=== PATIENT | male | born 1940 | race Caucasian/White ===

== ENCOUNTER 2020-07-12 16:54 | Outpatient (RCR) | payer MEDICARE, SELFPAY ==
[2020-07-12 16:58] VITALS: BP_SYST 60
--- NOTE | 2020-07-12 17:39 | PTOPEVAL ---
Thank you for referring Arnoldo Marroquin to [facility] The patient is scheduled to be seen for therapy? __3__x/week for 12 visits. Please review, sign, date and return this plan of care EMILIANA. I agree with and certify that the following plan of care is medically necessary. Referring Physician Date Admitting Provider: Attending Provider: Devaughn Workman, MD Referring Provider: *PT Outpatient Evaluation Start: 07/12/20 16:58 Freq: Status: Active Protocol: Document 07/12/20 16:58 GONZALEZ (Rec: 07/12/20 17:38 GONZALEZ [id number]) Therapy Assessment Status Assessment Status Assessment Status Evaluation Outpatient Past Medical History Cardiovascular History Hx Hypercholesterolemia Yes Gastrointestinal History Hx Gastroesophageal Reflux Disease Yes Genitourinary History Hx Benign Prostatic Hyperplasia Yes Musculoskeletal History Hx Joint Replacement Yes: R knee, L hip Hx Orthopedic Surgery Yes: Luke rotator cuff Evaluation Information Problem 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 reports that he underwent Query Text:As Reported By Patient/ surgery on 07/09/20. He states Family that he never was in a sling. He states that he has been doing exercise daily that he was instructed by the doctor. He states that he is sleep at night with pain medication. He reports that his goal for therapy is to gain normal shoulder mobility. Prior Level of Function Activity Level (Last 3 Months) Occupation [employer] Hand Dominance Right Activity of Daily Living Ability Independent Indoor/Home Mobility Independent Community Mobility Independent Stairs Ability Independent Functional Cognition (Planning, Shopping Needs Some Help , Taking Medications) Cooking No Cleaning No Laundry No Shopping No Driving No Pain Assessment Timing of Pain Assessment Timing of Pain Assessment Pre-Treatment Pain Scale Pain Scale Used Numeric (1 - 10) Self Report Pain Assessment Left Shoulder(s) Reported Pain Level 5 Pain Score Pain Score 5: Self Report Interventions Used Interventions Used By Clinicians Activity or ADL's,Exercise Upper Extremity Range of Motion Scapular/ Shoulder Range of Motion Left Shoulder Flexion - Active 0
--- NOTE | 2020-08-21 14:04 | PTOPEVAL ---
Thank you for referring Arnoldo Marroquin to [facility].? The patient is scheduled to be seen for therapy? __2__x/week for 8 visits. Please review, sign, date and return this plan of care EMILIANA. I agree with and certify that the following plan of care is medically necessary. Referring Physician Date Admitting Provider: Attending Provider: Devaughn Workman, MD Referring Provider: *PT Outpatient Evaluation Start: 07/12/20 16:58 Freq: Status: Active Protocol: Document 08/21/20 13:00 GONZALEZ (Rec: 08/21/20 14:01 GONZALEZ [id number]) Therapy Assessment Status Assessment Status Assessment Status Re-evaluation Outpatient Past Medical History Cardiovascular History Hx Hypercholesterolemia Yes Gastrointestinal History Hx Gastroesophageal Reflux Disease Yes Genitourinary History Hx Benign Prostatic Hyperplasia Yes Musculoskeletal History Hx Joint Replacement Yes: R knee, L hip Hx Orthopedic Surgery Yes: Luke rotator cuff Hx Rheumatoid Arthritis Yes Evaluation Information Problem 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 reports that the shoulder Query Text:As Reported By Patient/ is doing better in recent days Family . He still notes bouts of sharp, intense pain that limited his ability to exercise. He states that he just recently has been able to tolerate performance of the pulleys with less pain at home . Pain Assessment Pain Scale Pain Scale Used Numeric (1 - 10) Self Report Pain Assessment Left Shoulder(s) Reported Pain Level 5 Pain Score Pain Score 5: Self Report Interventions Used Interventions Used By Clinicians Electrical Stimulation, Exercise Upper Extremity Range of Motion General Upper Extremity Range of Motion Gross Upper Extremity Range of Motion Pt. presents with 120 degrees Comments active left shoulder flexion in supine. In sitting pt. demonstrate 75 degrees shoulder flexion with excessive scapular elevation and upward rotation. He remains very painful with attempted ER of the left shoulder even at 0 degrees of abduction. He achieves 35 degrees passive ER and 40
== END 2020-08-21 14:15 | disposition home or self-care (01) ==
LOC: CHSPT 16:54
PROVIDERS: Visit Provider Orthopaedic Surgery
DX: M75.122 Complete rotator cuff tear or rupture of left shoulder, not specified as traumatic (principal); Z51.89 Encounter for other specified aftercare
CPT/HCPCS: 97014; 97110; 97161; 97530; G0283

== ENCOUNTER 2020-07-20 13:00 | Outpatient (CLI) | payer MEDICARE, SELFPAY ==
[2020-07-21 18:58] LABS: SARS-CoV-2 RNA PCR Positive
== END 2020-07-20 13:01 | disposition home or self-care (01) ==
LOC: CHSLAB 13:03
PROVIDERS: PCP Family Medicine; Visit Provider Family Medicine
DX: U07.1 COVID-19 (principal)
CPT/HCPCS: 87635; C9803; U0003

== ENCOUNTER 2020-07-20 13:47 | Inpatient (IN) | payer MEDICARE, SELFPAY ==
[2020-07-20] VITALS (27 sets, daily range): BP systolic 110–140; BP diastolic 62–89; PULSE 72–87; RESP 12–27; TEMP 37.2–37.4; O2SAT 90–95
--- NOTE | ~2020-07-20 | CT_ITS ---
EXAMINATION: CT brain wo con DATE: 07/20/2020 15:25 INDICATION: Generalized weakness. Fever. Covid 19. TECHNIQUE: Computed tomography (CT) of the head was performed without intravenous contrast. The dose- length product was 605.33 mGy-cm. Automated exposure control and iterative reconstruction technique w ere employed. COMPARISON: None FINDINGS: Hypodensity of the left basal ganglia may represent prominent perivascular space or chronic lacunar infarction. There is intracranial atherosclerosis. No ventriculomegaly or midline shift. The re is a mucosal retention cyst of the right maxillary sinus. No acute intracranial hemorrhage, infarc tion, mass or mass effect. There are scattered mild periventricular and subcortical white matter [place] ges, most likely related to small vessel ischemic disease (microangiopathy). IMPRESSION: 1. No acute intracranial abnormality. 2: Hypodensity of the left basal ganglia, perivascular space versus chronic lacunar infarction. Reviewed, dictated and finalized at location A. ISTRY RESEARCH ASSISTANT IMPRESSION: 1. No acute intracranial abnormality. 2: Hypodensity of the left basal ganglia, perivascular space versus chronic lac unar infarction.
--- NOTE | ~2020-07-20 | XR_ITS ---
XR chest 1V portable 07/20/2020 15:26 Indication: Weakness. Shortness of breath. Covid Positive. Procedure: AP portable chest Comparison: 07/25/2016 Findings: Cardiomegaly. Left basilar atelectasis. No focal air space disease, pulmonary edema, pleura l effusion or suspected pneumothorax. There is a left shoulder arthroplasty. Impression: 1: Left basilar atelectasis. 2: Cardiomegaly. Reviewed, dictated and finalized at location A. URETOR SPECIALIST Impression: 1: Left basilar atelectasis. 2: Cardiomegaly.
--- NOTE | 2020-07-20 13:57 | ECG_ITS ---
Measurements Intervals [place] Rate: 81 P: 33 TN: 156 QRS: -20 QRSD: 97 T: -1 QT: 390 QTc: 453 Interpretive Statements SINUS RHYTHM BORDERLINE R WAVE PROGRESSION, ANTERIOR LEADS CONSIDER INFERIOR INFARCT, AGE INDETERMINATE ABNORMAL ECG Electronically Signed On 07-20-2020 14:39:12 ASSISTANT BRANCH OPERATIONS MANAGER by Keven Peterson D.O.
--- NOTE | 2020-07-20 14:05 | ED.WEAKNESS ---
HPI - Weakness General Chief complaint: Weakness Stated complaint: 80 YO male who is S/P left shoulder replacement 1 week ago sent into ER for evaluation of gen weakness w/ poor appetite and nausea for approx 1 week since just after his surgery. Patients last COVID test was today at [facility] office and prior just prior to surgery on 07/07/20. Results from today are pending, results from 07/07 was negative. Symptoms associated w/ N/V and loss of appetite. Related Data Home Medications Medication Instructions Recorded Confirmed esomeprazole magnesium [Nexium] 40 mg PO DAILY 07/01/19 07/20/20 finasteride 5 mg PO DAILY 07/01/19 07/20/20 hydrocodone-acetaminophen 1 tablet PO PRN 07/20/20 07/20/20 Allergies Allergy/AdvReac Type Severity Reaction Status Date / Time No Known Allergies Allergy Verified 08/22/19 09:32 Review of Systems Review of Systems: All systems reviewed & are unremarkable except as noted in HPI and below Constitutional: Constitutional: Reports weakness Eyes: Eyes: Reports no additional eye complaints ENT: Reports system reviewed and no additional complaints, except as documented Cardiovascular: Cardiovascular: Reports no additional cardiovascular complaints Respiratory: Respiratory: Reports no additional respiratory complaints Gastrointestinal: Gastrointestinal: Reports no additional gastrointestinal complaints Genitourinary: Genitourinary: Reports no additional male genitourinary complaints Musculoskeletal: Musculoskeletal: Reports no additional musculoskeletal complaints Integumentary/Breasts: Skin/Breast: Reports system reviewed and no additional complaints, except as docu Neurologic: Reports weakness Psychiatric: Psychiatric: Reports no additional psychiatric complaints Endocrine: Endocrine: Reports as per HPI Comments: Loss of appetite Hematologic/Lymphatic: Hematologic/Lymphatic: Reports no additional hematologic/lymphatic complaints Allergic/Immunologic: Allergic/Immunologic: Reports no additional allergic/immunologic complaints [facility] Past Medical History Medical History BPH (benign prostatic hyperplasia) GERD (gastroesophageal reflux disease) Hypercholesteremia Overweight Rheumatoid arthritis Surgical History Surgical History H/O knee surgery H/O rotator cuff surgery History of hip surgery Family History Family History Father Healthy adult Mother Emphysema, unspecified Social History Social History Smoking status: Never smoker Substance use: never Additional living arrangements comments: . 2 Children Additional occupation/education comments: Prior Occupation: [employer] Gender identity (if verbalized by the patient): Male Exam Const: General: healthy appearing and no acute distress Orientation/consciousness: patient oriented x3 HENMT: Head: normal to inspection Eyes: Conjunctivae: conjunctivae normal Pupils: Equal, round and reactive pupils present Neck: Neck: normal visual inspection and no lymphadenopathy Chest: Chest palpation & inspection: normal inspection of the chest Resp: Effort & Inspection: normal respiratory effort Auscultation: clear to auscultation bilaterally Cardio: Rate: regular rate Rhythm: regular rhythm GI: Inspection: non-distended GI Palp: Yes Soft to palpation, No Tenderness to palpation present (GI) and No Guarding due to palpation present (GI) : General: Yes no CVA tenderness Testes: Testes normal Back/Spine/Pelvis: Back: no CVA tenderness Skin: General skin exam: normal color Neuro: General: patient oriented x3, moves all extremities, no meningeal signs, no focal motor deficits (L shoulder post op reduced movement as expected for post-op status) and CN's II-XI intact bilaterally Spe
[2020-07-20 14:25] LABS: Basophils Absolute Auto 0.04 K/mm3 (0.00-0.10); Basophils Percent Auto 0.8 % (0.0-1.0); Eosinophils Absolute Auto 0.01 K/mm3 (0.02-0.50); Eosinophils Percent Auto 0.2 % (1.0-6.0); Hematocrit 42.5 % (37.0-46.0); Hemoglobin 13.8 g/dL (12.4-15.3); Immature Granulocyte Absolute 0.03 K/mm3 (0.00-0.00); Immature Granulocyte Percent A 0.6 % (0.0-0.0); Lymphocytes Absolute Auto 1.04 K/mm3 (1.10-4.50); Lymphocytes Percent Auto 21.9 % (18.0-42.0); Mean Corpuscular HGB Conc 32.5 g/dL (32.0-36.0); Mean Corpuscular Hemoglobin 26.8 pg (27.0-31.0); Mean Corpuscular Volume 82.7 fL (78.0-102.0); Mean Platelet Volume 11.9 fl (8.7-11.0); Monocytes Absolute Auto 0.46 K/mm3 (0.10-0.90); Monocytes Percent Auto 9.7 % (2.0-11.0); Neutrophils Absolute Auto 3.2 K/mm3 (1.7-7.2); Neutrophils Percent Auto 66.8 % (50.0-70.0); Platelet Count Result 153 K/mm3 (150-420); Red Blood Count 5.14 M/mm3 (4.70-6.10); Red Cell Distribution Width 14.2 % (11.6-14.4); White Blood Count 4.8 K/mm3 (4.8-10.8)
[2020-07-20 14:35] LABS: Partial Thromboplastin Time 28.8 SEC (23.90-30.70); Prothrombin Time 10.8 Seconds (9.50-12.10)
[2020-07-20 14:42] LABS: Influenza Control Valid (Valid)
[2020-07-20 14:42] LABS: SARS-CoV-2 Ag Positive (Negative)
[2020-07-20 14:47] LABS: Alanine Aminotransferase 46 U/L (16-63); Albumin Level 3.3 g/dL (3.4-5.0); Alkaline Phosphatase 78 U/L (46-116); Ammonia < 10 umol/L (11-32); Anion Gap 7 mmol/L (8-16); Aspartate Amino Transferase 39 U/L (15-37); Bilirubin,Total 0.9 mg/dL (0.00-1.00); Blood Urea Nitrogen 16 mg/dL (7-18); Calcium 8.7 mg/dL (8.5-10.1); Carbon Dioxide 26 mmol/L (21-32); Chloride 93 mmol/L (98-108); Creatine Kinase 79 U/L (39-308); Estimated CRCL calculation 54 ml/min; Estimated Glomerular Filt Rate > 60; Glucose 110 mg/dL (70-99); Osmolality Calculated 264 mOsm/kg (285-295); Potassium 3.8 mmol/L (3.5-5.1); Salicylate < 0.2 mg/dL (2.8-20.0); Sodium 126 mmol/L (136-145); Total Protein 6.9 g/dL (6.4-8.2); Troponin I 9.2 ng/L (0.00-60.4)
[2020-07-20 14:48] LABS: Acetaminophen < 2 ug/mL (10-30); Ethanol < 3 mg/dL (0-6)
[2020-07-20] MEDS: SODIUM CHLORIDE 0.9% IV 1,000 ML 999 ML IV CONT (15:30)
--- NOTE | 2020-07-20 17:16 | PC.NURSE ---
1508 RN REQUESTED ROOM ON 2ND FLOOR FROM ARIANA CRAFT RN. ROOM 212 PROVIDED. AWAITING ROOM CLEAN.
[2020-07-20 17:21] LABS: Add Urine Microscopic? NO; Appearance Urine Clear (Clear); Bilirubin Urine Negative (Negative); Blood Urine Negative (Negative); Color Urine Yellow (Yellow); Glucose Urine UA Negative (Negative); Ketones Urine Negative (Negative); Leukocyte Esterase Ur Negative LEU/UL (Negative); Nitrate Urine Negative (Negative); Protein Urine Negative (Negative); Specific Grav Ur 1.015 (1.010-1.020); Urobilinogen Urine 0.2 mg/dL (0.2-1.0)
[2020-07-20 17:39] LABS: Amphetamine Screen Urine Negative (Negative); Barbiturate Screen Urine Negative (Negative); Benzodiazepines Screen Urine Negative (Negative); Cannabinoid Screen Urine Negative (Negative); Cocaine Screen Urine Negative (Negative); Methadone Screen Urine Negative (Negative); Opiate Screen Urine Positive (Negative); Phencyclidine Screen Urine Negative (Negative)
[2020-07-20] MEDS: REMDESIVIR 200 MG/NS 250 ML 200 MG/250 ML BAG 250 MG IVPB (20:51)
[2020-07-20] MEDS: SODIUM CHLORIDE 0.9% IV 1,000 ML 100 ML IV CONT (20:55)
[2020-07-20 21:40] LABS: Alanine Aminotransferase 53 U/L (16-63); Estimated CRCL calculation 53 ml/min; Estimated Glomerular Filt Rate > 60
--- NOTE | 2020-07-20 22:45 | PC.NURSE ---
2100 here from er with hyponatremia. +covid. had L shoulder surgery 10 days prior. sutures out and site is well approx. A & O. lungs clear. claims he had a temp earilier in day at dr office. claims shoulder can be painful at times. claims he has not felt good for last 5 days and has not gone to pt services. worries about it freezing up on him. covid/ precautions explained. ivf run. kvrn
[2020-07-21] VITALS: BP 121/75; PULSE 83; RESP 18; TEMP 37.8; O2SAT 95
--- NOTE | 2020-07-21 00:25 | PC.NURSE ---
Temperature 100.1 patient states that he does not want Tylenol for fever at this time. Patient has call light in reach and informed to call the nurse if he needs anything pr starts to feel worse. Patient verbalized understanding.
[2020-07-21] MEDS: SODIUM CHLORIDE 0.9% IV 1,000 ML 100 ML IV CONT (04:52)
[2020-07-21] MEDS: ACETAMINOPHEN 325 MG TABLET 650 MG PO (05:03)
[2020-07-21 05:10] VITALS: BP 110/67; PULSE 80; RESP 20; TEMP 37.7; O2SAT 92
[2020-07-21 05:38] LABS: Basophils Absolute Auto 0.05 K/mm3 (0.00-0.10); Basophils Percent Auto 1.1 % (0.0-1.0); Eosinophils Absolute Auto 0.01 K/mm3 (0.02-0.50); Eosinophils Percent Auto 0.2 % (1.0-6.0); Hematocrit 37.8 % (37.0-46.0); Hemoglobin 12.5 g/dL (12.4-15.3); Immature Granulocyte Absolute 0.02 K/mm3 (0.00-0.00); Immature Granulocyte Percent A 0.4 % (0.0-0.0); Lymphocytes Absolute Auto 1.17 K/mm3 (1.10-4.50); Lymphocytes Percent Auto 24.9 % (18.0-42.0); Mean Corpuscular HGB Conc 33.1 g/dL (32.0-36.0); Mean Corpuscular Hemoglobin 27.2 pg (27.0-31.0); Mean Corpuscular Volume 82.4 fL (78.0-102.0); Mean Platelet Volume 12.4 fl (8.7-11.0); Monocytes Absolute Auto 0.46 K/mm3 (0.10-0.90); Monocytes Percent Auto 9.8 % (2.0-11.0); Neutrophils Percent Auto 63.6 % (50.0-70.0); Platelet Count Result 128 K/mm3 (150-420); Red Blood Count 4.59 M/mm3 (4.70-6.10); Red Cell Distribution Width 14.1 % (11.6-14.4); White Blood Count 4.7 K/mm3 (4.8-10.8)
[2020-07-21 06:02] LABS: Partial Thromboplastin Time 29.9 SEC (23.90-30.70); Prothrombin Time 11.1 Seconds (9.50-12.10)
[2020-07-21 06:09] LABS: Alanine Aminotransferase 45 U/L (16-63); Albumin Level 2.7 g/dL (3.4-5.0); Alkaline Phosphatase 66 U/L (46-116); Anion Gap 7 mmol/L (8-16); Aspartate Amino Transferase 45 U/L (15-37); Bilirubin,Total 0.7 mg/dL (0.00-1.00); Blood Urea Nitrogen 15 mg/dL (7-18); Calcium 8.1 mg/dL (8.5-10.1); Carbon Dioxide 24 mmol/L (21-32); Chloride 97 mmol/L (98-108); Estimated CRCL calculation 61 ml/min; Estimated Glomerular Filt Rate > 60; Glucose 98 mg/dL (70-99); Osmolality Calculated 266 mOsm/kg (285-295); Potassium 3.8 mmol/L (3.5-5.1); Sodium 128 mmol/L (136-145); Total Protein 5.7 g/dL (6.4-8.2)
[2020-07-21 06:45] VITALS: TEMP 36.1
[2020-07-21 08:00] VITALS: BP 107/58; PULSE 76; RESP 18; TEMP 36.4; O2SAT 96
[2020-07-21] MEDS: ENOXAPARIN 40 MG/0.4 ML SYRINGE SUB-Q (09:08)
[2020-07-21] MEDS: DEXAMETHASONE SOD PHOS INJ 4 MG/ML VIAL 6 MG IV PUSH (09:08)
[2020-07-21] MEDS: DOCUSATE SODIUM 100 MG CAPSULE PO (09:08)
[2020-07-21 09:49] LABS: Thyroid Stimulating Hormone Reflex 2.22 u/IU/mL (0.36-3.74)
--- NOTE | 2020-07-21 10:48 | PM.SD ---
Same Day Admit/Disch: HPI History of Present Illness Chief complaint: feeling weak and poor PMFSH Past Medical History Medical History BPH (benign prostatic hyperplasia) GERD (gastroesophageal reflux disease) Hypercholesteremia Overweight Rheumatoid arthritis Surgical History Surgical History H/O knee surgery H/O rotator cuff surgery History of hip surgery Family History Family History Father Healthy adult Mother Emphysema, unspecified Social History Social History Smoking status: Former smoker Smoking end date: 08/02/83 Alcohol intake: current Drinks per week: 5 Substance use: never Substance use type: does not use Additional living arrangements comments: . 2 Children Additional occupation/education comments: Prior Occupation: [employer] Gender identity (if verbalized by the patient): Male Sexual Orientation (if Verbalized by the Patient): Straight or Heterosexual Spiritual care concerns: No Same Day Admit/Disch: Med Pre-admit Medications Home Medications Medication Instructions Recorded Confirmed Type baclofen 10 mg PO TID PRN #30 tablet 07/01/19 07/20/20 Rx carbamazepine [Tegretol XR] 100 mg PO BID #60 tablet 07/01/19 07/20/20 Rx esomeprazole magnesium [Nexium] 40 mg PO DAILY 07/01/19 07/20/20 History finasteride 5 mg PO DAILY 07/01/19 07/20/20 History meclizine 12.5 mg tablet 12.5 mg PO BID PRN #60 tablet 08/22/19 07/20/20 Rx rosuvastatin 20 mg tablet 20 mg PO DAILY #90 tablet 07/02/20 07/20/20 Rx tamsulosin 0.4 mg capsule 0.4 mg PO DAILY #90 cap 07/02/20 07/20/20 Rx hydrocodone-acetaminophen 1 tablet PO PRN 07/20/20 07/20/20 History dexamethasone 6 mg PO DAILY 10 Days #10 tablet 07/21/20 Rx ondansetron HCl [Zofran] 4 mg PO Q8H PRN #30 tablet 07/21/20 Rx Exam Narrative: Exam Narrative: GENERAL: Fatigue in no apparent distress. HEAD: normocephalic, atraumatic. EYES: PERRL. Sclera clear/white. Vision is grossly intact. EARS: External ears normal, auditory canals clear and without drainage, TMs normal without perforation. Hearing grossly intact. NOSE: External nose normal with no obvious nasal discharge, nares without redness, no rhinorrhea. THROAT: Mucous membranes moist, posterior pharynx clear. NECK: Neck supple, non-tender without lymphadenopathy, masses or thyromegaly. CARDIOVASCULAR: Regular rate and rhythm without murmurs, gallops, or rubs. RESPIRATORY: Clear to auscultation. Breath sounds equal bilaterally. No wheezes, rales, or rhonchi. GASTROINTESTINAL: Abdomen soft, non-tender, nondistended. Bowel sounds are active. No hepato-splenomegaly, or palpable masses. No guarding. SKIN: Left shoulder surgical site no signs or symptoms of infection wound healing well NEURO: awake, alert, and oriented to person, place and time. There were no obvious focal neurologic abnormalities. Steady gait EXTREMITIES: Normal range of motion. No edema. No calf tenderness. Negative Homans sign bilaterally. BACK: Nontender without deformity or crepitance. No flank tenderness. DS: Data Data Completed and Pending Labs on day of discharge: Labs from last 24 hours 07/21/20 07/21/20 07/21/20 05:29 05:29 05:29 WBC RBC Hgb Hct MCV MCH MCHC RDW Plt Count MPV Immature Gran % (Auto) Neut % (Auto) Lymph % (Auto) [place] % (Auto) Eos % (Auto) Baso % (Auto) Lymph # (Auto) [place] # (Auto) Eos # (Auto) Baso # (Auto) Abs Immat Gran (auto) Absolute Neuts (auto) Absolute Nucleated RBC Nucleated RBC % PT 11.1 INR 1.0 APTT 29.9 Sodium 128 L Potassium 3.8 Chloride 97 L Carbon Dioxide 24 Anion Gap 7 L BUN 15 Creatinine 0.87 Estim Creat Clear Calc 61 Estimated GFR
--- NOTE | 2020-08-09 12:35 | PC.NURSE ---
Unable to contact for discharge call back.
== END 2020-07-21 12:40 | disposition home or self-care (01) | DRG 725 ==
LOC: CHSED 18:58 → CHS2ND 19:26
PROVIDERS: Nurse Practitioner; Admitting Provider Family Medicine; Emergency Provider Family Medicine; PCP Family Medicine; Visit Provider Family Medicine
DX: N40.0 Benign prostatic hyperplasia without lower urinary tract symptoms (principal); U07.1 COVID-19; E87.1 Hypo-osmolality and hyponatremia; K21.9 Gastro-esophageal reflux disease without esophagitis; E78.00 Pure hypercholesterolemia, unspecified; M06.9 Rheumatoid arthritis, unspecified; E86.0 Dehydration; Z79.899 Other long term (current) drug therapy; E66.3 Overweight
CPT/HCPCS: 36415; 70450; 71045; 80053; 80307; 81003; 82140; 82550; 82565; 84443; 84460; 84484; 85025; 85610; 85730; 87426; 87635; 87804; 93005; 96360; 99285; A9270; C9803; J1100; J1650; J7030; U0003

== ENCOUNTER 2021-04-06 13:31 | Emergency (ER) | payer MEDICARE, SELFPAY ==
[2021-04-06 13:42] VITALS: BP 140/79; PULSE 68; RESP 20; TEMP 36.6; O2SAT 96
[2021-04-06] MEDS: MORPHINE SULFATE (*CRX) 4 MG/ML INJ IM (14:03)
[2021-04-06] MEDS: ONDANSETRON HCL ODT 4 MG TABLET PO (14:04)
--- NOTE | 2021-04-06 14:04 | ED.ABDPAIN ---
HPI - Abdominal Pain General Chief Complaint: Abdominal Pain Stated Complaint: RUQ abd pain Source: patient and family Mode of arrival: ambulatory Limitations: no limitations History of Present Illness HPI narrative: this is a 80-year-old gentleman with a right upper quadrant abdominal pain, was seen at another ER facility had a negative workup with negative CT scan. Patient also followed up with his primary care physician on Thursday and has a scheduled ultrasound for gallbladder scheduled for this Thursday. The patient was not given any pain medication, and currently rates his pain about 8/10 with some mild nausea with no vomiting no diarrhea constipation no fever chills no chest pain shortness of breath. MD elicited complaint: abdominal pain Pertinent past history: none Onset (ago): day(s) Pain Consistency: intermittent Location: RUQ Severity: moderate Pain scale (0-10): 8 Quality: aching Related Data Home Medications Medication Instructions Recorded Confirmed esomeprazole magnesium [Nexium] 40 mg PO DAILY 07/01/19 07/20/20 finasteride 5 mg PO DAILY 07/01/19 07/20/20 Allergies Allergy/AdvReac Type Severity Reaction Status Date / Time NSAIDS (Non-Steroidal Allergy Intermediate Unknown Verified 04/05/21 07:23 Anti-Inflamma Review of Systems Review of Systems: All systems reviewed & are unremarkable except as noted in HPI and below PMFSH Past Medical History Medical History (Updated 04/06/21 @ 14:08 by Malik Hurtado MD) BPH (benign prostatic hyperplasia) GERD (gastroesophageal reflux disease) Hypercholesteremia Overweight Rheumatoid arthritis Surgical History Surgical History H/O knee surgery H/O rotator cuff surgery History of hip surgery Family History Family History Father Healthy adult Mother Emphysema, unspecified Social History Social History Smoking status: Former smoker Smoking end date: 08/02/83 Alcohol intake: current Drinks per week: 5 Alcohol use details: Occasional Substance use: never Substance use type: does not use Additional living arrangements comments: . 2 Children Additional occupation/education comments: Prior Occupation: [employer] Gender identity (if verbalized by the patient): Male Sexual Orientation (if Verbalized by the Patient): Straight or Heterosexual Spiritual care concerns: No Exam Const: General: no acute distress Orientation/consciousness: patient oriented x3 HENMT: Head: normal to inspection Eyes: Conjunctivae: conjunctivae normal Pupils: Equal, round and reactive pupils present EOM: EOMs intact bilaterally Neck: Neck: normal visual inspection, no lymphadenopathy and no meningeal signs Chest: Chest palpation & inspection: normal inspection of the chest Resp: Effort & Inspection: normal respiratory effort Auscultation: clear to auscultation bilaterally Cardio: Rate: regular rate Rhythm: regular rhythm GI: GI Palp: Yes Soft to palpation and Yes Tenderness to palpation present (GI) ( Right upper quadrant abdominal pain) : Testes: Testes normal Urinary Catheter: Urinary Catheter: patent and draining Back/Spine/Pelvis: Back: no CVA tenderness Skin: General skin exam: normal color Rashes: no rashes Neuro: General: patient oriented x3, moves all extremities and no meningeal signs Extrem: General: normal to inspection and no pedal edema Course Course Emergency Course: patient received 4mg of IM morphine and ODT Zofran, pain had improved and advised to go home with pain medication and follow-up with ultrasound on Thursday as scheduled. Vital Signs Vital signs: Vital Signs Temperature 36.6 C 04/06/21 13:42 Pulse Rate 68 04/06/21 13:42 Respiratory Rate 20 04/06/21 13:42 Blood Pressure 140/79 04/06/21 13:42 Pulse Ox
[2021-04-06 14:41] VITALS: BP 112/88; PULSE 69; RESP 20; TEMP 36.3; O2SAT 94
== END 2021-04-06 14:44 | disposition home or self-care (01) ==
PROVIDERS: Emergency Provider Emergency Medicine; PCP Family Medicine
DX: R10.11 Right upper quadrant pain (principal); Z87.891 Personal history of nicotine dependence; K21.9 Gastro-esophageal reflux disease without esophagitis; E78.00 Pure hypercholesterolemia, unspecified
CPT/HCPCS: 96372; 99283; A9270; J2270

== ENCOUNTER 2021-04-15 08:15 | Outpatient (CLI) | payer MEDICARE, SELFPAY ==
--- NOTE | ~2021-04-15 | US_ITS ---
EXAMINATION: US abdomen limited DATE: 04/15/2021 08:42 INDICATION: Abdominal pain TECHNIQUE: Multiple grayscale and Doppler ultrasound images of the abdomen were obtained. COMPARISON: 01/06/2017 FINDINGS: Bowel gas obscures visualization of the pancreas. The visualized portions of the pancreas a re unremarkable. The liver is normal with normal echogenicity and echotexture. No surface nodularity. Normal hepatopetal flow in the main portal vein. The gallbladder is normal with no abnormal wall thi ckening, pericholecystic fluid or stones. The normal common bile duct measures 3 mm. There was no son ographic Rivera sign. IMPRESSION: 1. Normal sonographic study of the gallbladder. Reviewed, dictated and finalized at location A.
== END 2021-04-15 08:16 | disposition home or self-care (01) ==
LOC: CHSIMG 08:17
PROVIDERS: PCP Family Medicine; Visit Provider Family Medicine
DX: R10.9 Unspecified abdominal pain (principal)
CPT/HCPCS: 76705

== ENCOUNTER 2021-04-22 11:43 | Outpatient (CLI) | payer MEDICARE, SELFPAY ==
--- NOTE | ~2021-04-22 | NM_ITS ---
EXAMINATION: NM hepatobiliary wo pharm DATE: 04/22/2021 15:01 INDICATION: Right upper quadrant abdominal pain. COMPARISON: Ultrasound 04/15/2021, hepatobiliary scintigraphy 01/23/2017 TECHNIQUE: 5.6 mCi Tc-99m mebrofenin (Choletec) was administered intravenously. Scintigraphic images of the abdomen were obtained for one hour. Then, the patient drank 8 oz Ensure, and imaging was cont inued for 60 minutes. FINDINGS: There is normal clearance of radiotracer from the blood pool. There is homogeneous tracer u ptake by the liver. Activity progresses to the bowel and gallbladder. Gallbladder ejection fraction (GBEF) was 70%. Note that with this technique, normal GBEF >= 33%. IMPRESSION: 1. Normal hepatobiliary scintigraphy. Reviewed, dictated and finalized at location A.
== END 2021-04-22 11:44 | disposition home or self-care (01) ==
LOC: CHSIMG 11:44
PROVIDERS: PCP Family Medicine; Visit Provider Family Medicine
DX: R10.11 Right upper quadrant pain (principal)
CPT/HCPCS: 78226; A9537

== ENCOUNTER 2021-08-01 10:30 | Outpatient (CLI) | payer MEDICARE, SELFPAY ==
--- NOTE | ~2021-08-01 | XR_ITS ---
EXAMINATION: XR chest 2V DATE: 08/01/2021 11:00 INDICATION: Smoker. Preop. TECHNIQUE: Frontal and lateral views of the chest were obtained. COMPARISON: Chest single view 07/20/2020, CT abdomen and pelvis 01/20/2017 FINDINGS: There is mild atelectasis in the lower lung zones. No pleural effusion or pneumothorax. The heart size is normal. There is a moderate-sized hiatal hernia. There is a left shoulder arthroplasty . There are suture anchors in right humeral head. IMPRESSION: 1. Mild atelectasis in the lower lung zones. 2. Moderate-sized hiatal hernia. Reviewed, dictated and finalized at location B. ASSURANCE REPRESENTATIVE
--- NOTE | 2021-08-01 10:33 | ECG_ITS ---
Measurements Intervals [place] Rate: 72 P: 54 NE: 180 QRS: 9 QRSD: 97 T: 23 QT: 376 QTc: 413 Interpretive Statements SINUS RHYTHM DELAYED PRECORDIAL R/S TRANSITION BORDERLINE ECG Electronically Signed On 08-01-2021 12:37:40 KITCHENHAND by Keven Peterson D.O.
[2021-08-01 10:46] LABS: Basophils Absolute Auto 0.14 K/mm3 (0.00-0.10); Basophils Percent Auto 2.1 % (0.0-1.0); Eosinophils Absolute Auto 0.16 K/mm3 (0.02-0.50); Eosinophils Percent Auto 2.4 % (1.0-6.0); Hemoglobin 14.2 g/dL (12.4-15.3); Immature Granulocyte Absolute 0.02 K/mm3 (0.00-0.00); Immature Granulocyte Percent A 0.3 % (0.0-0.0); Lymphocytes Absolute Auto 1.51 K/mm3 (1.10-4.50); Lymphocytes Percent Auto 22.8 % (18.0-42.0); Mean Corpuscular HGB Conc 30.9 g/dL (32.0-36.0); Mean Corpuscular Hemoglobin 24.2 pg (27.0-31.0); Mean Corpuscular Volume 78.4 fL (78.0-102.0); Mean Platelet Volume 12.1 fl (8.7-11.0); Monocytes Absolute Auto 0.81 K/mm3 (0.10-0.90); Monocytes Percent Auto 12.3 % (2.0-11.0); Neutrophils Percent Auto 60.1 % (50.0-70.0); Platelet Count Result 201 K/mm3 (150-420); Red Blood Count 5.87 M/mm3 (4.70-6.10); Red Cell Distribution Width 15.9 % (11.6-14.4); White Blood Count 6.6 K/mm3 (4.8-10.8)
[2021-08-01 10:50] LABS: Add Urine Microscopic? NO; Appearance Urine Clear (Clear); Bilirubin Urine Negative (Negative); Blood Urine Negative (Negative); Color Urine Light Yellow (Yellow); Glucose Urine UA Negative (Negative); Ketones Urine Negative (Negative); Leukocyte Esterase Ur Negative LEU/UL (Negative); Nitrate Urine Negative (Negative); Protein Urine Negative (Negative); Urobilinogen Urine 0.2 mg/dL (0.2-1.0)
[2021-08-01 10:59] LABS: Hemoglobin A1C 6.4 % (<5.7)
[2021-08-01 11:16] LABS: Alanine Aminotransferase 34 U/L (16-63); Albumin Level 3.8 g/dL (3.4-5.0); Alkaline Phosphatase 92 U/L (46-116); Anion Gap 10 mmol/L (8-16); Aspartate Amino Transferase 24 U/L (15-37); Bilirubin,Total 0.9 mg/dL (0.00-1.00); Blood Urea Nitrogen 17 mg/dL (7-18); Calcium 9.1 mg/dL (8.5-10.1); Carbon Dioxide 26 mmol/L (21-32); Chloride 103 mmol/L (98-108); Estimated Glomerular Filt Rate > 60; Glucose 104 mg/dL (70-99); Osmolality Calculated 289 mOsm/kg (285-295); Potassium 4.5 mmol/L (3.5-5.1); Sodium 139 mmol/L (136-145); Total Protein 6.3 g/dL (6.4-8.2)
== END 2021-08-01 10:31 | disposition home or self-care (01) ==
LOC: CHSLAB 10:33
PROVIDERS: PCP Family Medicine; Visit Provider Nurse Practitioner Family
DX: Z01.818 Encounter for other preprocedural examination (principal); R73.09 Other abnormal glucose
CPT/HCPCS: 36415; 71046; 80053; 81003; 83036; 85025; 87081; 93005

== ENCOUNTER 2021-10-25 13:20 | Outpatient (CLI) | payer MEDICARE, SELFPAY ==
--- NOTE | ~2021-10-25 | US_ITS ---
EXAMINATION: US carotid duplex BI DATE: 10/25/2021 13:53 INDICATION: Dizziness and giddiness. Cerebral atherosclerosis. TECHNIQUE: Grayscale, color Doppler, and pulsed Doppler images of the cervical carotid arteries were obtained. The degree of vessel stenosis is placed in one of the following categories: normal, <50%, 5 0-69%, >=70% but less than near-occlusion, near-occlusion, or total occlusion. Note that percent sten osis relative to normal distal artery lumen diameter is indirectly measured from velocity measurement s as described by Yasmany, et al. Radiology 2003; 229:340-346. COMPARISON: None. FINDINGS: RIGHT: The right common carotid artery (CCA) peak systolic velocity (PSV) is 87 cm/s. The right internal car otid artery (ICA) PSV is 108 cm/s. The right ICA end-diastolic velocity (EDV) is 31 cm/s. The right I CA/CCA PSV ratio is 1.2. Grayscale and color Doppler images yield an estimate of <50% diameter reduct ion from plaque in the ICA. The external carotid artery (ECA) PSV is 149 cm/s. There is antegrade candie w in the right vertebral artery. LEFT: The left CCA PSV is 102 cm/s. The left ICA PSV is 76 cm/s. The left ICA EDV is 22 cm/s. The left ICA/ CCA PSV ratio is 0.7. Grayscale and color Doppler images yield an estimate of <50% diameter reduction from plaque in the ICA. The ECA PSV is 116 cm/s. There is antegrade flow in the left vertebral arter y. IMPRESSION: 1. <50% stenosis in the right internal carotid artery. 2. <50% stenosis in the left internal carotid artery. Reviewed, dictated and finalized at location A.
--- NOTE | 2021-10-28 08:17 | WPDHOLTEREM ---
Holter/Event Monitor Holter/Event Monitor Date of procedure: 10/25/21 Holter/Event Procedure: 48 Hr Holter Monitor Indications: Syncope Conclusion: 1. 48 hour holter monitor on 10/25/21. 2. Underlying rhythm is sinus rhythm with sinus arrhythmia. HR range 52-130 bpm; average HR 84 bpm. 3. There are 2,384 premature supraventricular complexes, 21 supraventricular couplets and 19 supraventricular trigeminy. No supraventricular tachycardia. 4. There are 167 premature ventricular complexes. No ventricular tachycardia. 5. No sinoatrial or atrioventricular blocks. No significant pauses greater than 2 seconds. 6. Patient reports symptoms of left ear pain and headache which demonstrates sinus rhythm, HR range 66-73 bpm and one PAC.
== END 2021-10-25 13:21 | disposition home or self-care (01) ==
PROVIDERS: PCP Family Medicine; Visit Provider Family Medicine
DX: R42 Dizziness and giddiness (principal)
CPT/HCPCS: 93225; 93226; 93880

== ENCOUNTER 2021-11-05 10:39 | Outpatient (CLI) | payer MEDICARE, SELFPAY ==
--- NOTE | ~2021-11-05 | MR_ITS ---
EXAMINATION: MR brain/brain stem wo con DATE: 11/05/2021 11:21 INDICATION: Headache. TECHNIQUE: Magnetic resonance imaging (MRI) of the brain and brainstem was performed without intraven ous contrast. Sequences included sagittal and axial T1-weighted FSE, axial diffusion-weighted FS EPI, axial T2*-weighted GRE, axial T2-weighted FLAIR Propeller, and axial T2-weighted Propeller. Apparent diffusion coefficient (ADC) maps were created. COMPARISON: Head CT 07/20/2020 FINDINGS: There are scattered areas of nonspecific increased T2-weighted signal intensity in the cere bral white matter. There is no intracranial hemorrhage, acute infarction, or abnormal intracranial ma ss lesion. The ventricles are normal in size. There is mild mucosal thickening in the paranasal sinus es. There are changes of ethmoidectomies. The orbits are normal. The mastoid air cells are normal. IMPRESSION: 1. Mild nonspecific cerebral white matter disease, which likely represents chronic small vessel ische joe disease. Reviewed, dictated and finalized at location A. IMPRESSION: 1. 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
== END 2021-11-05 10:40 | disposition home or self-care (01) ==
LOC: CHSIMG 10:40
PROVIDERS: PCP Family Medicine; Visit Provider Family Medicine
DX: R51.9 Headache, unspecified (principal)
CPT/HCPCS: 70551

== ENCOUNTER 2021-11-15 10:53 | Outpatient (CLI) | payer MEDICARE, SELFPAY ==
--- NOTE | 2021-11-18 09:38 | WPDNEUROLOGY ---
Neurology EEG Report TEST eeg DIAGNOSIS loss of consciousness CONDITION OF RECORDING Awake and drowsy EEG NUMBER [id number] CLINICAL HISTORY patient reports he was having a lot of headaches a few weeks ago and once lost consciousness as well for a short appeared of time but has not had headaches since then. EEG DESCRIPTION Basic resting occipital frequency consists of fairly well-organized low voltage 8 to 10 hertz per 2nd alpha admixed with low-voltage 15 to 18 hertz per 2nd beta. During drowsiness low-voltage beta activity seen diffusely admixed with waxing and waning posterior alpha rhythm. Hyperventilation not done. Photic stimulation produced normal drive. Non paroxysmal. Nonfocal. Nonlateralizing. IMPRESSION No significant abnormalities noted during drowsiness and wakefulness. clinical correlation recommended.
== END 2021-11-15 10:54 | disposition home or self-care (01) ==
PROVIDERS: PCP Family Medicine; Visit Provider Family Medicine
DX: R55 Syncope and collapse (principal)
CPT/HCPCS: 95816

== ENCOUNTER 2023-03-10 10:11 | Outpatient (CLI) | payer MEDICARE, SELFPAY ==
[2023-03-10 10:42] LABS: Basophils Absolute Auto 0.12 K/mm3 (0.00-0.10); Basophils Percent Auto 1.6 % (0.0-1.0); Eosinophils Percent Auto 2.7 % (1.0-6.0); Hematocrit 48.2 % (37.0-46.0); Hemoglobin 15.4 g/dL (12.4-15.3); Immature Granulocyte Absolute 0.04 K/mm3 (0.00-0.00); Immature Granulocyte Percent A 0.5 % (0.0-0.0); Lymphocytes Absolute Auto 1.73 K/mm3 (1.10-4.50); Lymphocytes Percent Auto 23.3 % (18.0-42.0); Mean Corpuscular Hemoglobin 26.9 pg (27.0-31.0); Mean Corpuscular Volume 84.3 fL (78.0-102.0); Mean Platelet Volume 12.4 fl (8.7-11.0); Monocytes Absolute Auto 1.01 K/mm3 (0.10-0.90); Monocytes Percent Auto 13.6 % (2.0-11.0); Neutrophils Absolute Auto 4.3 K/mm3 (1.7-7.2); Neutrophils Percent Auto 58.3 % (50.0-70.0); Platelet Count Result 157 K/mm3 (150-420); Red Blood Count 5.72 M/mm3 (4.70-6.10); Red Cell Distribution Width 15.1 % (11.6-14.4); White Blood Count 7.4 K/mm3 (4.8-10.8)
[2023-03-10 11:08] LABS: Alanine Aminotransferase 31 U/L (16-63); Albumin Level 3.8 g/dL (3.4-5.0); Alkaline Phosphatase 74 U/L (46-116); Anion Gap 9 mmol/L (8-16); Aspartate Amino Transferase 23 U/L (15-37); Bilirubin,Total 1.1 mg/dL (0.00-1.00); Blood Urea Nitrogen 16 mg/dL (7-18); Calcium 9.2 mg/dL (8.5-10.1); Carbon Dioxide 28 mmol/L (21-32); Chloride 103 mmol/L (98-108); Cholesterol 154 mg/dL (0-200); Estimated Glomerular Filt Rate > 60; Glucose 93 mg/dL (70-99); HDL Direct 40 mg/dL (40-60); LDL Cholesterol Calculated 91 mg/dL (<130); Osmolality Calculated 291 mOsm/kg (285-295); Potassium 4.6 mmol/L (3.5-5.1); Sodium 140 mmol/L (136-145); Total Protein 6.4 g/dL (6.4-8.2); Triglycerides 115 mg/dL (0-150)
== END 2023-03-10 10:12 | disposition home or self-care (01) ==
LOC: CHSLAB 10:13
PROVIDERS: PCP Family Medicine; Visit Provider Family Medicine
DX: E78.00 Pure hypercholesterolemia, unspecified (principal)
CPT/HCPCS: 36415; 80053; 80061; 85025

== ENCOUNTER 2024-05-27 11:09 | Outpatient (CLI) | payer MEDICARE, SELFPAY ==
[2024-05-27 11:20] LABS: Basophils Absolute Auto 0.12 K/mm3 (0.00-0.10); Basophils Percent Auto 1.3 % (0.0-1.0); Eosinophils Absolute Auto 0.25 K/mm3 (0.02-0.50); Eosinophils Percent Auto 2.8 % (1.0-6.0); Hemoglobin 15.1 g/dL (12.4-15.3); Immature Granulocyte Absolute 0.02 K/mm3 (0.00-0.00); Immature Granulocyte Percent A 0.2 % (0.0-0.0); Lymphocytes Absolute Auto 1.79 K/mm3 (1.10-4.50); Lymphocytes Percent Auto 19.7 % (18.0-42.0); Mean Corpuscular HGB Conc 32.8 g/dL (32-36); Mean Corpuscular Hemoglobin 27.4 pg (27.0-31.0); Mean Corpuscular Volume 83.3 fL (78.0-102.0); Mean Platelet Volume 11.8 fl (8.7-11.0); Monocytes Absolute Auto 1.19 K/mm3 (0.10-0.90); Monocytes Percent Auto 13.1 % (2.0-11.0); Neutrophils Absolute Auto 5.71 K/mm3 (1.70-7.20); Neutrophils Percent Auto 62.9 % (50.0-70.0); Platelet Count Result 206 K/mm3 (150-420); Red Blood Count 5.52 M/mm3 (4.70-6.10); Red Cell Distribution Width 14.2 % (11.6-14.4); White Blood Count 9.1 K/mm3 (4.8-10.8)
[2024-05-27 11:58] LABS: Alanine Aminotransferase 22 U/L (16-63); Albumin Level 3.6 g/dL (3.4-5.0); Alkaline Phosphatase 72 U/L (46-116); Anion Gap 8 mmol/L (4-12); Aspartate Amino Transferase 17 U/L (15-37); Bilirubin,Total 0.9 mg/dL (0.00-1.00); Blood Urea Nitrogen 17 mg/dL (7-18); Calcium 9.1 mg/dL (8.5-10.1); Carbon Dioxide 28 mmol/L (21-32); Chloride 103 mmol/L (98-108); Cholesterol 156 mg/dL (0-200); Estimated Glomerular Filt Rate > 60; Glucose 92 mg/dL (70-99); HDL Direct 43 mg/dL (40-60); LDL Cholesterol Calculated 83 mg/dL (<130); Osmolality Calculated 289 mOsm/kg (285-295); Potassium 4.5 mmol/L (3.5-5.1); Sodium 139 mmol/L (136-145); Total Protein 6.3 g/dL (6.4-8.2); Triglycerides 149 mg/dL (0-150)
[2024-05-27 12:12] LABS: Thyroid Stimulating Hormone Reflex 2.77 u/IU/mL (0.36-3.74)
== END 2024-05-27 11:10 | disposition home or self-care (01) ==
LOC: CHSLAB 11:10
PROVIDERS: PCP Family Medicine; Visit Provider Family Medicine
DX: E03.9 Hypothyroidism, unspecified (principal); E78.00 Pure hypercholesterolemia, unspecified
CPT/HCPCS: 36415; 80053; 80061; 84443; 85025

== ENCOUNTER 2024-07-05 13:22 | Outpatient (CLI) | payer MEDICARE, SELFPAY ==
[2024-07-05 13:45] LABS: Basophils Absolute Auto 0.13 K/mm3 (0.00-0.10); Basophils Percent Auto 1.4 % (0.0-1.0); Eosinophils Percent Auto 2.2 % (1.0-6.0); Hematocrit 44.7 % (37.0-46.0); Hemoglobin 14.8 g/dL (12.4-15.3); Immature Granulocyte Absolute 0.02 K/mm3 (0.00-0.00); Immature Granulocyte Percent A 0.2 % (0.0-0.0); Lymphocytes Absolute Auto 1.63 K/mm3 (1.10-4.50); Lymphocytes Percent Auto 17.7 % (18.0-42.0); Mean Corpuscular HGB Conc 33.1 g/dL (32-36); Mean Corpuscular Hemoglobin 26.8 pg (27.0-31.0); Mean Corpuscular Volume 80.8 fL (78.0-102.0); Mean Platelet Volume 11.5 fl (8.7-11.0); Monocytes Absolute Auto 1.16 K/mm3 (0.10-0.90); Monocytes Percent Auto 12.6 % (2.0-11.0); Neutrophils Absolute Auto 6.06 K/mm3 (1.70-7.20); Neutrophils Percent Auto 65.9 % (50.0-70.0); Platelet Count Result 222 K/mm3 (150-420); Red Blood Count 5.53 M/mm3 (4.70-6.10); Red Cell Distribution Width 14.3 % (11.6-14.4); White Blood Count 9.2 K/mm3 (4.8-10.8)
[2024-07-05 14:25] LABS: Alanine Aminotransferase 23 U/L (16-63); Albumin Level 3.6 g/dL (3.4-5.0); Alkaline Phosphatase 81 U/L (46-116); Anion Gap 8 mmol/L (4-12); Aspartate Amino Transferase 16 U/L (15-37); Bilirubin,Total 0.8 mg/dL (0.00-1.00); Blood Urea Nitrogen 19 mg/dL (7-18); CRP 3.1 mg/dL (0.0-0.9); Calcium 9.2 mg/dL (8.5-10.1); Carbon Dioxide 27 mmol/L (21-32); Chloride 100 mmol/L (98-108); Creatine Kinase 89 U/L (39-308); Estimated Glomerular Filt Rate > 60; Glucose 101 mg/dL (70-99); Osmolality Calculated 282 mOsm/kg (285-295); Potassium 4.5 mmol/L (3.5-5.1); Sodium 135 mmol/L (136-145); Total Protein 6.3 g/dL (6.4-8.2)
== END 2024-07-05 13:23 | disposition home or self-care (01) ==
LOC: CHSLAB 13:24
PROVIDERS: PCP Family Medicine; Visit Provider Family Medicine
DX: M35.3 Polymyalgia rheumatica (principal)
CPT/HCPCS: 36415; 80053; 82550; 85025; 86140

== ENCOUNTER 2025-07-17 10:31 | Outpatient (CLI) | payer MEDICARE, SELFPAY ==
[2025-07-17 10:47] LABS: Hematocrit 47.8 % (37.0-46.0); Hemoglobin 15.2 g/dL (12.4-15.3); Immature Granulocyte Percent A 0.5 % (0.0-0.0); Lymphocytes Absolute Auto 1.80 K/mm3 (1.10-4.50); Mean Corpuscular HGB Conc 31.8 g/dL (32-36); Mean Corpuscular Hemoglobin 26.9 pg (27.0-31.0); Mean Corpuscular Volume 84.6 fL (78.0-102.0); Nucleated Red Blood Cells Absolute Auto 0.00 K/mm3 (0.00-0.00); Nucleated Red Blood Cells Perc 0.0 % (0-0.0); Platelet Count Result 259 K/mm3 (150-420); Red Blood Count 5.65 M/mm3 (4.70-6.10); White Blood Count 8.8 K/mm3 (4.8-10.8)
[2025-07-17 11:20] LABS: Alanine Aminotransferase 23 U/L (6-50); Albumin Level 4.3 g/dL (3.5-5.1); Alkaline Phosphatase 53 U/L (38-126); Anion Gap 10 mmol/L (4-12); Aspartate Amino Transferase 40 U/L (17-59); Bilirubin,Total 1.0 mg/dL (0.2-1.3); Blood Urea Nitrogen 16 mg/dL (9-20); CRP 2.5 mg/dL (<1.0); Calcium 9.3 mg/dL (8.4-10.2); Carbon Dioxide 23 mmol/L (22-30); Chloride 102 mmol/L (98-107); Estimated Glomerular Filt Rate > 60; Glucose 100 mg/dL (65-110); Osmolality Calculated 281 mOsm/kg (285-295); Potassium 4.8 mmol/L (3.4-5.0); Sodium 135 mmol/L (137-145); Total Protein 6.5 g/dL (6.3-8.2)
[2025-07-17 11:30] LABS: Hemoglobin A1C 5.7 % (<5.7)
== END 2025-07-17 10:32 | disposition home or self-care (01) ==
PROVIDERS: PCP Family Medicine; Visit Provider Family Medicine
DX: M35.3 Polymyalgia rheumatica (principal); Z68.30 Body mass index [BMI] 30.0-30.9, adult; E78.00 Pure hypercholesterolemia, unspecified; Z13.1 Encounter for screening for diabetes mellitus
CPT/HCPCS: 36415; 80053; 83036; 85025; 86140